=== PATIENT | female | born 1935 | race Two or more races ===

== ENCOUNTER 2020-05-30 16:25 | Emergency (ER) | payer OTHER ==
[~2020-05-30] VITALS: Ht 154.9 cm; Wt 72.6 kg
[2020-05-30] MEDS ORDERED: NORVASC5 MG (17:40)
[2020-05-30] MEDS ORDERED: TOPROL XL25 M1 (17:41)
[2020-05-30] MEDS ORDERED: SYNTHROID (17:41)
[2020-05-30] MEDS ORDERED: GLIMEPIRIDE2 MG (17:42)
[2020-05-30] MEDS ORDERED: SEROQUEL50 MG (17:42)
[2020-05-30] MEDS ORDERED: KLONOPIN 0.5 MG (17:43)
[2020-05-30] MEDS ORDERED: FIORINAL 50-321 EACH PO (23:21)
== END 2020-05-30 23:09 | disposition home or self-care (01) ==
LOC: ER 16:25
DX: S00.03XA Contusion of scalp, initial encounter (principal); S30.0XXA Contusion of lower back and pelvis, initial encounter; R53.81 Other malaise; Z03.818 Encounter for observation for suspected exposure to other biological agents ruled out; W18.09XA Striking against other object with subsequent fall, initial encounter; Y93.89 Activity, other specified; Y92.018 Other place in single-family (private) house as the place of occurrence of the external cause; Y99.8 Other external cause status

== ENCOUNTER 2021-04-13 08:48 | Emergency (ER) | payer OTHER ==
[~2021-04-13] VITALS: Ht 154.9 cm; Wt 71.7 kg
[~2021-04-13 08:48] MED LIST: FIORINAL 50-321 EACH PO; GLIMEPIRIDE2 MG; KLONOPIN 0.5 MG; NORVASC5 MG; SEROQUEL50 MG; SYNTHROID; TOPROL XL25 M1
[2021-04-13] MEDS ORDERED: CLONAZEPAM0.5 MG PO (09:09)
[2021-04-13] MEDS ORDERED: SYNTHROID100 MCG PO (09:09)
[2021-04-13] MEDS ORDERED: ZOLOFT25 MG PO (09:10)
== END 2021-04-13 15:38 | disposition home or self-care (01) ==
LOC: ER 08:48
DX: R10.32 Left lower quadrant pain (principal)

== ENCOUNTER 2023-09-06 15:26 | Emergency (ER) | payer OTHER ==
[~2023-09-06] VITALS: Ht 154.9 cm; Wt 68.9 kg
[~2023-09-06 15:26] MED LIST changes: +CLONAZEPAM0.5 MG PO; +SYNTHROID100 MCG PO; +ZOLOFT25 MG PO
[2023-09-06] MEDS ORDERED: GLIMEPIRIDE2 MG (15:54)
[2023-09-06] MEDS ORDERED: LOVAZA1 GM PO (15:54)
[2023-09-06] MEDS ORDERED: DIALYVITE 800-1 EACH PO (15:54)
[2023-09-06] MEDS ORDERED: CRESTOR5 MG PO (15:54)
[2023-09-06] MEDS ORDERED: GABAPENTIN100 M2 PO (15:55)
[2023-09-06 16:55] LABS: HEMATOCRIT 41.2 % (36.0-45.00); HEMOGLOBIN 14.7 g/dL (12.0-15.00); MEAN CELL VOLUME 95.6 fL (80.00-100.00); MEAN CORPUSCULAR HGB CONC 35.6 g/dl (32.0-36.0); PLATELET COUNT 155 K/uL (150-450); RED BLOOD COUNT 4.31 M/uL (4.00-6.00); RED CELL DISTRIBUTION WIDTH 12.6 % (11.5-14.5)
[2023-09-06 17:15] LABS: PH,URINE 6.5 (5.0-8.0); URINE APPEARANCE Clear; URINE BILIRRUBIN Negative (NEGATIVE); URINE BLOOD Negative; URINE COLOR Yellow; URINE GLUCOSE Negative (NEGATIVE); URINE LEUKOCYTE Trace; URINE NITRATE Negative; URINE PROTEIN Negative (NEGATIVE)
[2023-09-06 17:16] LABS: URINE BACTERIA 31.4 uL (0.0-1933); URINE EPITHELIAL CELLS 4.4 uL (0.0-38.8); URINE WBC 6.9 uL (0.0-23.2)
[2023-09-06 17:17] LABS: ALBUMIN 3.6 gm/dL (3.4-5.0); BILIRUBIN TOTAL 1.41 mg/dL (0.3-1.2); BILIRUBIN,CONJUGATED 0.29 mg/dL (0.0-0.2); BILIRUBIN,UNCONJUGATED 1.12 mg/dL (0.0-0.6); CALCIUM 8.9 mg/dL (8.5-10.1); CREATININE SERUM 1.13 mg/dL (0.55-1.02); GFR 45.65; GLOBULINA 3.5 G/DL (2.4-3.5); TOTAL PROTEIN 7.1 gm/dL (6.4-8.2)
[2023-09-06 17:31] LABS: POTASSIUM 2.98 mEq/L (3.5-5.1)
[2023-09-06] MEDS ORDERED: LEVSIN/SL0.125 MG SL (22:04)
== END 2023-09-06 22:35 | disposition home or self-care (01) ==
LOC: ER 15:26
PROVIDERS: General Practice
DX: R10.9 Unspecified abdominal pain (principal); E11.9 Type 2 diabetes mellitus without complications; Z79.84 Long term (current) use of oral hypoglycemic drugs; Z88.0 Allergy status to penicillin; Z91.041 Radiographic dye allergy status; I10 Essential (primary) hypertension; E03.9 Hypothyroidism, unspecified; Z20.822 Contact with and (suspected) exposure to COVID-19
CPT/HCPCS: 36415; 74177; 96365; 96366; 99284; J1885; J2405; J7030; Q9965

== ENCOUNTER 2023-09-13 10:00 | Inpatient (IN) | payer OTHER ==
[~2023-09-13] VITALS: Ht 152.4 cm; Wt 81.6 kg
[~2023-09-13 10:00] MED LIST changes: +CRESTOR5 MG PO; +DIALYVITE 800-1 EACH PO; +GABAPENTIN100 M2 PO; +LEVSIN/SL0.125 MG SL; +LOVAZA1 GM PO
[2023-09-13] MEDS ORDERED: DEXAMETHASONE SODIUM PHOSPHATE 4 MG/ML VIAL IV STA (10:29)
[2023-09-13] MEDS ORDERED: KETOROLAC TROMETHAMINE 30 MG VIAL IM STA (10:30)
[2023-09-13] MEDS ORDERED: KETOROLAC TROMETHAMINE 30 MG VIAL IV STA (10:30)
[2023-09-13 11:16] LABS: HEMATOCRIT 40.3 % (36.0-45.00); HEMOGLOBIN 14.3 g/dL (12.0-15.00); MEAN CELL VOLUME 94.9 fL (80.00-100.00); MEAN CORPUSCULAR HEMOGLOBIN 33.8 pg (27.00-32.0); MEAN CORPUSCULAR HGB CONC 35.6 g/dl (32.0-36.0); PLATELET COUNT 208 K/uL (150-450); RED BLOOD COUNT 4.25 M/uL (4.00-6.00); RED CELL DISTRIBUTION WIDTH 12.5 % (11.5-14.5)
[2023-09-13 11:59] LABS: ALBUMIN 3.5 gm/dL (3.4-5.0); BILIRUBIN TOTAL 1.73 mg/dL (0.3-1.2); BILIRUBIN,CONJUGATED 0.44 mg/dL (0.0-0.2); BILIRUBIN,UNCONJUGATED 1.29 mg/dL (0.0-0.6); CALCIUM 9.2 mg/dL (8.5-10.1); CREATININE SERUM 0.95 mg/dL (0.55-1.02); GFR 55.77; TOTAL PROTEIN 7.2 gm/dL (6.4-8.2)
[2023-09-13 12:03] LABS: POTASSIUM 2.91 mEq/L (3.5-5.1)
[2023-09-13] MEDS ORDERED: POTASSIUM CHLORIDE IN 0.9%NACL 40 MEQ/1,000 ML PIGGYBAG IV STA (12:06)
[2023-09-13 12:36] LABS: PH,URINE 6.5 (5.0-8.0); URINE APPEARANCE Clear; URINE BILIRRUBIN Negative (NEGATIVE); URINE BLOOD Negative; URINE COLOR Yellow; URINE GLUCOSE Negative (NEGATIVE); URINE LEUKOCYTE Negative; URINE NITRATE Negative; URINE PROTEIN Negative (NEGATIVE)
[2023-09-13 12:41] LABS: URINE BACTERIA 20.1 uL (0.0-1933); URINE RBC 4.1 uL (0.0-20.8); URINE WBC 3.3 uL (0.0-23.2)
[2023-09-13] MEDS ORDERED: FOLIC ACID 1 MG TABLET PO SCH (15:56)
[2023-09-13] MEDS ORDERED: MULTIVIT INFUSN,ADULT 4,VIT K 10 ML VIAL IV SCH (15:56)
[2023-09-13] MEDS ORDERED: Cyanocobalamin/Mecobalamin 1 TAB.SL SL SCH (15:56)
[2023-09-13] MEDS ORDERED: CHOLECALCIFEROL (VITAMIN D3) 5,000 UNITS TABLET PO SCH (15:57)
[2023-09-13] MEDS ORDERED: BISACODYL 5 MG TABLET.EC PO SCH (15:57)
[2023-09-13] MEDS ORDERED: ACETAMINOPHEN 500 MG GEL..CAP PO PRN (16:00)
[2023-09-13] MEDS ORDERED: SODIUM CHLORIDE 0.45 % 1,000 ML IV SCH (16:00)
[2023-09-13] MEDS ORDERED: OxyCODONE HCL/APAP UD (PERCOCET) PO PRN (16:00)
[2023-09-13] MEDS ORDERED: CLONAZEPAM 0.5 MG TABLET PO SCH (17:00)
[2023-09-13] MEDS ORDERED: SERTRALINE HCL 50 MG TABLET PO SCH (17:00)
[2023-09-13] MEDS ORDERED: INSULIN LISPRO 1,000 UNIT/10 ML UNITS SUBCUTANEO PRN (21:15)
[2023-09-13] MEDS ORDERED: DEXTROSE 50 % IN WATER 0.5 G/ML DISP.SYRIN IV PRN (21:15)
[2023-09-14] MEDS ORDERED: LEVOTHYROXINE SODIUM 100 MCG TABLET PO SCH (06:00)
[2023-09-14 08:57] LABS: ALBUMIN 3.5 gm/dL (3.4-5.0); BILIRUBIN TOTAL 1.63 mg/dL (0.3-1.2); CALCIUM 9.6 mg/dL (8.5-10.1); CREATININE SERUM 0.72 mg/dL (0.55-1.02); GFR 76.8; GLOBULINA 3.2 G/DL (2.4-3.5); POTASSIUM 3.79 mEq/L (3.5-5.1); TOTAL PROTEIN 6.7 gm/dL (6.4-8.2)
[2023-09-14 09:01] LABS: C-REACTIVE PROTEIN 0.75 MG/DL (0.00-0.29)
[2023-09-14 09:06] LABS: HEMATOCRIT 40.9 % (36.0-45.00); HEMOGLOBIN 14.5 g/dL (12.0-15.00); MEAN CELL VOLUME 96.4 fL (80.00-100.00); MEAN CORPUSCULAR HEMOGLOBIN 34.1 pg (27.00-32.0); MEAN CORPUSCULAR HGB CONC 35.4 g/dl (32.0-36.0); PLATELET COUNT 209 K/uL (150-450); RED BLOOD COUNT 4.24 M/uL (4.00-6.00); RED CELL DISTRIBUTION WIDTH 12.4 % (11.5-14.5)
[2023-09-14 09:07] LABS: ERYTHROCYTE SEDIMENTATION RATE 13 mm/hr
[2023-09-14] MEDS ORDERED: CHOLECALCIFEROL (VITAMIN D3) 5,000 UNITS TABLET PO SCH (10:23)
[2023-09-14] MEDS ORDERED: LIDOCAINE 5% 1 PATCH ADH. TOP SCH (12:00)
[2023-09-14 12:31] LABS: INR 1.08; PARTIAL THROMBOPLASTIN TIME 28.5 SECONDS (22.0-34.0); PROTHROMBIN TIME 11.3 SECONDS (9.0-11.5)
[2023-09-14] MEDS ORDERED: ORPHENADRINE CITRATE 30 MG/ML AMPUL IV SCH (21:00)
[2023-09-16 06:57] LABS: HEMATOCRIT 42.8 % (36.0-45.00); HEMOGLOBIN 15.2 g/dL (12.0-15.00); MEAN CELL VOLUME 95.5 fL (80.00-100.00); MEAN CORPUSCULAR HEMOGLOBIN 33.9 pg (27.00-32.0); MEAN CORPUSCULAR HGB CONC 35.5 g/dl (32.0-36.0); PLATELET COUNT 249 K/uL (150-450); RED BLOOD COUNT 4.48 M/uL (4.00-6.00); RED CELL DISTRIBUTION WIDTH 12.8 % (11.5-14.5)
[2023-09-16 07:08] LABS: ALBUMIN 3.7 gm/dL (3.4-5.0); BILIRUBIN TOTAL 1.38 mg/dL (0.3-1.2); CALCIUM 9.3 mg/dL (8.5-10.1); CREATININE SERUM 0.98 mg/dL (0.55-1.02); GFR 53.81; GLOBULINA 3.4 G/DL (2.4-3.5); POTASSIUM 3.49 mEq/L (3.5-5.1); TOTAL PROTEIN 7.1 gm/dL (6.4-8.2)
[2023-09-16] MEDS ORDERED: KETOROLAC TROMETHAMINE 30 MG VIAL IV PRN (15:00)
[2023-09-17] MEDS ORDERED: Pregabalin 50 MG CAPSULE PO SCH ×2 (01:30→21:00)
[2023-09-17] MEDS ORDERED: DIPHENHYDRAMINE HCL 50 MG/ML VIAL 1ML IV ONE (12:30)
[2023-09-17] MEDS ORDERED: METHYLPREDNISOLONE SOD SUCC 125 MG VIAL IV ONE (12:30)
[2023-09-18] MEDS ORDERED: FAMOTIDINE/PF 20 MG/2 ML VIAL IV SCH (21:05)
[2023-09-18] MEDS ORDERED: ONDANSETRON HCL 2 MG/ML VIAL IV PRN (21:15)
[2023-09-19] MEDS ORDERED: Pregabalin 50 MG CAPSULE PO SCH (05:00)
[2023-09-19] MEDS ORDERED: CLONAZEPAM 0.5 MG TABLET PO PRN (09:00)
[2023-09-20] MEDS ORDERED: CLONAZEPAM0.5 MG PO (15:29)
[2023-09-20] MEDS ORDERED: FOLIC ACID1 MG PO (15:30)
[2023-09-20] MEDS ORDERED: LIDODERM1 EACH TOP (15:30)
[2023-09-20] MEDS ORDERED: VITAMIN D3125 MC2 PO (15:30)
[2023-09-20] MEDS ORDERED: Neurin-Sl Tablet Sl SL (15:30)
[2023-09-20] MEDS ORDERED: SERTRALINE HCL50 MG PO (15:30)
[2023-09-20] MEDS ORDERED: LYRICA50 MG PO (15:30)
[2023-09-20] MEDS ORDERED: INTEGRA PLUS C1 EACH PO (15:31)
[2023-09-21] MEDS ORDERED: FAMOTIDINE/PF 20 MG/2 ML VIAL IV SCH (09:00)
== END 2023-09-20 20:33 | disposition home or self-care (01) | DRG 641 ==
LOC: ER 10:00 → MEDI 16:32
PROVIDERS: General Practice; Internal Medicine Endocrinology, Diabetes & Metabolism; ADMIT Internal Medicine; ATTEND Internal Medicine
PROC: BR29ZZZ Computerized Tomography (CT Scan) of Lumbar Spine (ICD-10-PCS; principal; 2023-09-13)
PROC: BR39ZZZ Magnetic Resonance Imaging (MRI) of Lumbar Spine (ICD-10-PCS; 2023-09-16)
PROC: BR39YZZ Magnetic Resonance Imaging (MRI) of Lumbar Spine using Other Contrast (ICD-10-PCS; 2023-09-16)
DX: E87.6 Hypokalemia (principal); E86.0 Dehydration; M48.061 Spinal stenosis, lumbar region without neurogenic claudication; G89.29 Other chronic pain; M54.59 Other low back pain; M89.8X8 Other specified disorders of bone, other site; M43.16 Spondylolisthesis, lumbar region; M51.16 Intervertebral disc disorders with radiculopathy, lumbar region; M79.7 Fibromyalgia; K59.00 Constipation, unspecified; I12.9 Hypertensive chronic kidney disease with stage 1 through stage 4 chronic kidney disease, or unspecified chronic kidney disease; E11.22 Type 2 diabetes mellitus with diabetic chronic kidney disease; N18.2 Chronic kidney disease, stage 2 (mild); I25.10 Atherosclerotic heart disease of native coronary artery without angina pectoris; E11.649 Type 2 diabetes mellitus with hypoglycemia without coma; F43.23 Adjustment disorder with mixed anxiety and depressed mood; E03.9 Hypothyroidism, unspecified; Z79.84 Long term (current) use of oral hypoglycemic drugs
CPT/HCPCS: 72149

== ENCOUNTER 2024-02-22 13:41 | Inpatient (IN) | payer OTHER ==
[~2024-02-22] VITALS: Ht 152.4 cm; Wt 59.9 kg
[~2024-02-22 13:41] MED LIST changes: +FOLIC ACID1 MG PO; +INTEGRA PLUS C1 EACH PO; +LIDODERM1 EACH TOP; +LYRICA50 MG PO; +Neurin-Sl Tablet Sl SL; +SERTRALINE HCL50 MG PO; +VITAMIN D3125 MC2 PO
[2024-02-22] MEDS ORDERED: FAMOtidine 200mg/20ml VIAL ONE ×2 (14:24→21:09)
[2024-02-22] MEDS ORDERED: FAMOtidine 10 MG/ML (4ML VIAL) IV ONE (14:30)
[2024-02-22] MEDS ORDERED: 0.9 % SODIUM CHLORIDE 1,000 ML IV ONE (14:30)
[2024-02-22] MEDS ORDERED: VITAMIN B COMPLEX/LYSINE 1 ML ML PO ONE (14:30)
[2024-02-22 15:31] LABS: HEMATOCRIT 39.6 % (36.0-45.00); MEAN CELL VOLUME 99.7 fL (80.00-100.00); MEAN CORPUSCULAR HEMOGLOBIN 35.2 pg (27.00-32.0); MEAN CORPUSCULAR HGB CONC 35.3 g/dl (32.0-36.0); PLATELET COUNT 200 K/uL (150-450); RED BLOOD COUNT 3.97 M/uL (4.00-6.00); RED CELL DISTRIBUTION WIDTH 12.9 % (11.5-14.5)
[2024-02-22 15:54] LABS: ABG pCO2 31.1 mmHg (35-45); BASE EXCESS -0.5 mmol/l; BICARBONATE 22.2 mmol/l (23-25); SaO2 96.7 %; Tco2 23.1 mmol/l
[2024-02-22 15:59] LABS: ALBUMIN 3.6 gm/dL (3.4-5.0); BILIRUBIN TOTAL 2.35 mg/dL (0.3-1.2); CALCIUM 9.4 mg/dL (8.5-10.1); CREATININE SERUM 0.97 mg/dL (0.55-1.02); GFR 54.32; GLOBULINA 3.6 G/DL (2.4-3.5); TOTAL PROTEIN 7.2 gm/dL (6.4-8.2)
[2024-02-22 16:07] LABS: allen test SATISFACTORY; o2 21 %; puncture site RADIAL RIGHT
[2024-02-22 18:14] LABS: PH,URINE 6.5 (5.0-8.0); URINE APPEARANCE Cloudy; URINE BILIRRUBIN Small (NEGATIVE); URINE BLOOD Negative; URINE COLOR Dark Yellow; URINE GLUCOSE Negative (NEGATIVE); URINE KETONE Trace (NEGATIVE); URINE LEUKOCYTE Small; URINE NITRATE Negative; URINE PROTEIN 30 (NEGATIVE)
[2024-02-22 18:17] LABS: URINE BACTERIA 110.8 uL (0.0-1933); URINE EPITHELIAL CELLS 10.1 uL (0.0-38.8); URINE RBC 3.8 uL (0.0-20.8); URINE WBC 122.9 uL (0.0-23.2)
[2024-02-22 18:39] LABS: URINE CAST 0.45 uL (0.0-1.40)
[2024-02-22] MEDS ORDERED: BUSPIRONE HCL 15 MG TABLET PO SCH (20:28)
[2024-02-22] MEDS ORDERED: ACETAMINOPHEN 500 MG GEL..CAP PO PRN (20:30)
[2024-02-22] MEDS ORDERED: ONDANSETRON HCL 4 MG in 0.9 % SODIUM CHLORIDE 50 ML IV PRN (20:30)
[2024-02-22] MEDS ORDERED: INSULIN LISPRO 1,000 UNIT/10 ML UNITS SUBCUTANEO PRN (20:30)
[2024-02-22] MEDS ORDERED: DEXTROSE 50 % IN WATER 0.5 G/ML DISP.SYRIN IV PRN (20:30)
[2024-02-22] MEDS ORDERED: MORPHINE SULFATE 2 MG/ML CARTRIDGE IV PRN (20:30)
[2024-02-22] MEDS ORDERED: hydrALAZINE HCL 20 MG VIAL IV PRN (20:30)
[2024-02-22] MEDS ORDERED: FUROsemide 20 MG/2 ML VIAL IV SCH (21:00)
[2024-02-22] MEDS ORDERED: FAMOTIDINE/PF 20 MG in 0.9 % SODIUM CHLORIDE 8 ML IV PUSH SCH (21:00)
[2024-02-22] MEDS ORDERED: FUROsemide 20 MG/2 ML VIAL ONE (21:08)
[2024-02-22 21:48] VITALS: BP 136/85; O2SAT 96
[2024-02-22 22:26] VITALS: O2SAT 97
[2024-02-22 22:27] LABS: POTASSIUM 2.89 mEq/L (3.5-5.1)
[2024-02-22 22:30] VITALS: BP 113/78; O2SAT 98
[2024-02-23] VITALS (9 sets, daily range): BP systolic 97–123; BP diastolic 68–82; O2SAT 97–98
[2024-02-23] MEDS ORDERED: LEVALBUTEROL HCL 1.25 MG/3 ML SOLUTION IH SCH
[2024-02-23] MEDS ORDERED: IPRATROPIUM BROMIDE 0.5 MG/2.5 ML AMPUL.NEB IH SCH (01:00)
[2024-02-23] MEDS ORDERED: POTASSIUM CHLORIDE IN WATER 100 ML IV SCH ×2 (05:00→17:00)
[2024-02-23] MEDS ORDERED: LEVOTHYROXINE SODIUM 100 MCG TABLET PO SCH (06:00)
[2024-02-23 07:26] LABS: HEMATOCRIT 36.7 % (36.0-45.00); HEMOGLOBIN 13.1 g/dL (12.0-15.00); MEAN CELL VOLUME 98.3 fL (80.00-100.00); MEAN CORPUSCULAR HEMOGLOBIN 35.2 pg (27.00-32.0); MEAN CORPUSCULAR HGB CONC 35.8 g/dl (32.0-36.0); PLATELET COUNT 203 K/uL (150-450); RED BLOOD COUNT 3.73 M/uL (4.00-6.00); RED CELL DISTRIBUTION WIDTH 13.1 % (11.5-14.5)
[2024-02-23 07:37] LABS: INR 1.1; PARTIAL THROMBOPLASTIN TIME 25.1 SECONDS (22.0-34.0); PROTHROMBIN TIME 11.5 SECONDS (9.0-11.5)
[2024-02-23 07:48] LABS: ERYTHROCYTE SEDIMENTATION RATE 29 mm/hr
[2024-02-23 08:07] LABS: ALBUMIN 3.2 gm/dL (3.4-5.0); BILIRUBIN TOTAL 2.13 mg/dL (0.3-1.2); BILIRUBIN,CONJUGATED 0.47 mg/dL (0.0-0.2); BILIRUBIN,UNCONJUGATED 1.66 mg/dL (0.0-0.6); CALCIUM 8.7 mg/dL (8.5-10.1); CHOL HDL RATIO 2.4 (0-5.0); CREATININE SERUM 0.79 mg/dL (0.55-1.02); GFR 68.84; GLOBULINA 2.9 G/DL (2.4-3.5); POTASSIUM 3.28 mEq/L (3.5-5.1); TOTAL PROTEIN 6.1 gm/dL (6.4-8.2)
[2024-02-23 08:08] LABS: C-REACTIVE PROTEIN 4.15 MG/DL (0.00-0.29)
[2024-02-23] MEDS ORDERED: METOPROLOL TARTRATE 25 MG TABLET PO SCH (09:00)
[2024-02-23] MEDS ORDERED: SERTRALINE HCL 100 MG TABLET PO SCH ×2 (09:00→21:00)
[2024-02-23] MEDS ORDERED: AMLODIPINE BESYLATE 10 MG TABLET PO SCH (09:00)
[2024-02-23] MEDS ORDERED: ENOXAPARIN SODIUM 40 MG/0.4 ML SYRINGE SUBCUTANEO SCH (09:00)
[2024-02-23] MEDS ORDERED: FAMOTIDINE/PF 20 MG/2 ML VIAL ONE (10:25)
[2024-02-23 12:05] LABS: PH,URINE 6.5 (5.0-8.0); URINE APPEARANCE Clear; URINE BILIRRUBIN Negative (NEGATIVE); URINE BLOOD NHT; URINE COLOR Yellow; URINE GLUCOSE Negative (NEGATIVE); URINE KETONE Negative (NEGATIVE); URINE LEUKOCYTE Small; URINE NITRATE Negative; URINE PROTEIN Negative (NEGATIVE)
[2024-02-23 12:09] LABS: URINE BACTERIA 118.4 uL (0.0-1933); URINE EPITHELIAL CELLS 2.4 uL (0.0-38.8); URINE RBC 56.4 uL (0.0-20.8); URINE WBC 57.6 uL (0.0-23.2)
[2024-02-23 12:25] LABS: URINE CAST 0.15 uL (0.0-1.40)
[2024-02-23] MEDS ORDERED: DILTIAZEM HCL 125 MG in 0.9 % SODIUM CHLORIDE 100 ML IV SCH (16:15)
[2024-02-23] MEDS ORDERED: FUROsemide 20 MG/2 ML VIAL IV STA (16:18)
[2024-02-23] MEDS ORDERED: ENOXAPARIN SODIUM 60 MG/0.6 ML SYRINGE SUBCUTANEO SCH (17:00)
[2024-02-23] MEDS ORDERED: PATIENTS OWN MEDICATION (MEDICAMENTO EN PISO) PO SCH (17:00)
[2024-02-23] MEDS ORDERED: BUSPIRONE HCL 15 MG TABLET PO SCH (17:00)
[2024-02-23] MEDS ORDERED: CARVEDILOL 3.125 MG TABLET PO SCH (21:00)
[2024-02-24] VITALS (9 sets, daily range): BP systolic 97–127; BP diastolic 60–77; O2SAT 90–99
[2024-02-24] MEDS ORDERED: FAMOTIDINE/PF 20 MG/2 ML VIAL ONE (08:26)
[2024-02-24] MEDS ORDERED: METOPROLOL TARTRATE 25 MG TABLET PO SCH (09:00)
[2024-02-24] MEDS ORDERED: POTASSIUM CHLORIDE/NACL 0.9% 1,000 ML IV ONE (13:15)
[2024-02-24] MEDS ORDERED: WATER IV SCH (14:56)
[2024-02-24] MEDS ORDERED: DEXTROSE 5% IV SCH (14:56)
[2024-02-24] MEDS ORDERED: DOXYCYCLINE HYCLATE IV SCH (14:56)
[2024-02-24] MEDS ORDERED: NYSTATIN 30 GM,SILVER SULFADIAZINE 50 GM,ZINC OXIDE 30 GM TOP SCH (17:00)
[2024-02-24] MEDS ORDERED: NITROGLYCERIN IN 5 % DEXTROSE 250 ML IV SCH (21:45)
[2024-02-24] MEDS ORDERED: NITROGLYCERIN IN 5 % DEXTROSE 50 MG/250 ML BOTTLE IV ONE (22:16)
[2024-02-24] MEDS ORDERED: AMIODARONE IN DEXTROSE,ISO-OSM 360 MG/200 ML IV.SOLN IV ONE (22:16)
[2024-02-25] VITALS (8 sets, daily range): BP systolic 91–120; BP diastolic 60–76; O2SAT 93–98
[2024-02-25] MEDS ORDERED: FUROsemide 20 MG/2 ML VIAL IV SCH (01:00)
[2024-02-25] MEDS ORDERED: FAMOTIDINE/PF 20 MG/2 ML VIAL ONE (08:15)
[2024-02-25] MEDS ORDERED: FUROsemide 40 MG/4 ML VIAL IV SCH (10:48)
[2024-02-25] MEDS ORDERED: NITROGLYCERIN IN 5 % DEXTROSE 250 ML IV SCH (11:00)
[2024-02-25 13:26] LABS: ALBUMIN 2.9 gm/dL (3.4-5.0); BILIRUBIN TOTAL 1.53 mg/dL (0.3-1.2); CALCIUM 8.7 mg/dL (8.5-10.1); CREATININE SERUM 0.83 mg/dL (0.55-1.02); GFR 65.03; GLOBULINA 3.4 G/DL (2.4-3.5); POTASSIUM 3.3 mEq/L (3.5-5.1); TOTAL PROTEIN 6.3 gm/dL (6.4-8.2)
[2024-02-25] MEDS ORDERED: AZTREONAM 1,000 MG VIAL IV NR (14:00)
[2024-02-25] MEDS ORDERED: CLINDAMYCIN PHOSPHATE 600 MG in DEXTROSE 5 % IN WATER 50 ML IV SCH (17:00)
[2024-02-25] MEDS ORDERED: AZTREONAM 1,000 MG VIAL IV SCH (21:00)
[2024-02-26] VITALS (9 sets, daily range): BP systolic 97–114; BP diastolic 56–75; O2SAT 96–100
[2024-02-26] MEDS ORDERED: FUROsemide 40 MG/4 ML VIAL IV SCH (01:00)
[2024-02-26] MEDS ORDERED: AMIODARONE HCL 200 MG TABLET PO SCH (09:00)
[2024-02-26] MEDS ORDERED: FAMOTIDINE/PF 20 MG/2 ML VIAL ONE ×2 (09:03→16:10)
[2024-02-26 09:54] LABS: ALBUMIN 3.2 gm/dL (3.4-5.0); BILIRUBIN TOTAL 1.98 mg/dL (0.3-1.2); CALCIUM 8.8 mg/dL (8.5-10.1); CREATININE SERUM 0.76 mg/dL (0.55-1.02); GFR 71.99; GLOBULINA 3.1 G/DL (2.4-3.5); POTASSIUM 3.48 mEq/L (3.5-5.1); TOTAL PROTEIN 6.3 gm/dL (6.4-8.2)
[2024-02-26] MEDS ORDERED: FUROsemide 20 MG/2 ML VIAL IV SCH (10:38)
[2024-02-26] MEDS ORDERED: CEFEPIME HCL 1,000 MG VIAL IV SCH (17:00)
[2024-02-26] MEDS ORDERED: LACTOBACILLUS ACIDOPHILUS 1 CAP CAP PO SCH (17:00)
[2024-02-26] MEDS ORDERED: HYDROCODONE/CHLORPHEN P-STIREX 5 ML ML PO SCH (21:00)
[2024-02-27] VITALS (10 sets, daily range): BP systolic 84–106; BP diastolic 50–75; O2SAT 90–99
[2024-02-27 09:12] LABS: HEMATOCRIT 33.6 % (36.0-45.00); HEMOGLOBIN 11.9 g/dL (12.0-15.00); MEAN CELL VOLUME 97.9 fL (80.00-100.00); MEAN CORPUSCULAR HEMOGLOBIN 34.8 pg (27.00-32.0); MEAN CORPUSCULAR HGB CONC 35.5 g/dl (32.0-36.0); PLATELET COUNT 202 K/uL (150-450); RED BLOOD COUNT 3.44 M/uL (4.00-6.00); RED CELL DISTRIBUTION WIDTH 13.1 % (11.5-14.5)
[2024-02-27 09:40] LABS: BILIRUBIN TOTAL 1.8 mg/dL (0.3-1.2); CALCIUM 8.9 mg/dL (8.5-10.1); CREATININE SERUM 0.68 mg/dL (0.55-1.02); GFR 81.85
[2024-02-27 10:17] LABS: POTASSIUM 2.81 mEq/L (3.5-5.1)
[2024-02-27] MEDS ORDERED: POTASSIUM CHLORIDE IN WATER 100 ML IV NR (12:15)
[2024-02-27] MEDS ORDERED: DIATRIZOATE MEGLUMINE, SODIUM 30 ML BOTTLE PO NR (16:45)
[2024-02-27] MEDS ORDERED: DOCUSATE CALCIUM 240 MG CAPSULE PO SCH (17:00)
[2024-02-27] MEDS ORDERED: DIPHENHYDRAMINE HCL 50 MG/ML VIAL 1ML IV NR (17:15)
[2024-02-27] MEDS ORDERED: METHYLPREDNISOLONE SOD SUCC 40 MG VIAL IV NR (17:15)
[2024-02-27] MEDS ORDERED: POTASSIUM CHLORIDE 10 MEQ CAPSULE PO SCH (21:50)
[2024-02-27] MEDS ORDERED: POTASSIUM CHLORIDE 10 MEQ CAPSULE PO ONE (22:14)
[2024-02-28] VITALS (7 sets, daily range): BP systolic 111–112; BP diastolic 78–80; O2SAT 97–100
[2024-02-28] MEDS ORDERED: ISOSORBIDE MONONITRATE 30 MG TABLET PO SCH (09:00)
[2024-02-28] MEDS ORDERED: METHYLPREDNISOLONE SOD SUCC 40 MG VIAL IV SCH (13:00)
[2024-02-28] MEDS ORDERED: PANTOPRAZOLE SODIUM 40 MG in 0.9 % SODIUM CHLORIDE 8 ML IV PUSH SCH (21:11)
[2024-02-28] MEDS ORDERED: AMIODARONE IN DEXTROSE,ISO-OSM 360 MG/200 ML IV.SOLN IV ONE (23:51)
[2024-02-29] VITALS (9 sets, daily range): BP systolic 100–109; BP diastolic 60–82; O2SAT 96–100
[2024-02-29] MEDS ORDERED: HYDROCODONE/CHLORPHEN P-STIREX 5 ML ML PO SCH (05:00)
[2024-02-29 20:55] LABS: AMYLASE 96 U/L (25-115)
[2024-02-29 21:12] LABS: LIPASE 151 U/L (13-75)
[2024-02-29] MEDS ORDERED: MORPHINE SULFATE 2 MG/ML CARTRIDGE IV PRN (23:15)
[2024-03-01] VITALS (8 sets, daily range): BP systolic 112–124; BP diastolic 78–96; O2SAT 96–100
[2024-03-01 07:46] LABS: ALBUMIN 3.3 gm/dL (3.4-5.0); BILIRUBIN TOTAL 0.98 mg/dL (0.3-1.2); CALCIUM 9.3 mg/dL (8.5-10.1); CREATININE SERUM 1.27 mg/dL (0.55-1.02); GFR 39.8; POTASSIUM 3.5 mEq/L (3.5-5.1); TOTAL PROTEIN 6.3 gm/dL (6.4-8.2)
[2024-03-01] MEDS ORDERED: PANTOPRAZOLE SODIUM 40 MG/VIAL VIAL ONE (08:36)
[2024-03-01] MEDS ORDERED: FUROsemide 20 MG/2 ML VIAL IV SCH (21:00)
[2024-03-01] MEDS ORDERED: DIGOXIN 0.25 MG/ML AMPUL IV SCH (21:21)
[2024-03-01] MEDS ORDERED: MORPHINE SULFATE 2 MG/ML CARTRIDGE IV PRN (21:31)
[2024-03-02] VITALS (9 sets, daily range): BP systolic 104–114; BP diastolic 58–85; O2SAT 93–98
[2024-03-02] MEDS ORDERED: PANTOPRAZOLE SODIUM 40 MG/VIAL VIAL ONE (08:18)
[2024-03-02] MEDS ORDERED: FUROsemide 20 MG/2 ML VIAL IV SCH (09:00)
[2024-03-02 09:26] LABS: ALBUMIN 3.3 gm/dL (3.4-5.0); BILIRUBIN TOTAL 0.96 mg/dL (0.3-1.2); CALCIUM 9.5 mg/dL (8.5-10.1); CREATININE SERUM 1.51 mg/dL (0.55-1.02); GFR 32.6; GLOBULINA 3.2 G/DL (2.4-3.5); POTASSIUM 3.7 mEq/L (3.5-5.1); TOTAL PROTEIN 6.5 gm/dL (6.4-8.2)
[2024-03-02] MEDS ORDERED: SIMETHICONE 125 MG CAPSULE PO SCH (17:00)
[2024-03-03] VITALS (10 sets, daily range): BP systolic 95–120; BP diastolic 55–74; O2SAT 94–99
[2024-03-03 07:48] LABS: HEMATOCRIT 34.8 % (36.0-45.00); MEAN CELL VOLUME 99.7 fL (80.00-100.00); MEAN CORPUSCULAR HEMOGLOBIN 34.4 pg (27.00-32.0); MEAN CORPUSCULAR HGB CONC 34.5 g/dl (32.0-36.0); PLATELET COUNT 155 K/uL (150-450); RED BLOOD COUNT 3.49 M/uL (4.00-6.00); RED CELL DISTRIBUTION WIDTH 12.7 % (11.5-14.5)
[2024-03-03 08:25] LABS: ALBUMIN 2.8 gm/dL (3.4-5.0); BILIRUBIN TOTAL 0.85 mg/dL (0.3-1.2); CALCIUM 8.8 mg/dL (8.5-10.1); CREATININE SERUM 1.17 mg/dL (0.55-1.02); GFR 43.75; GLOBULINA 2.9 G/DL (2.4-3.5); POTASSIUM 3.26 mEq/L (3.5-5.1); TOTAL PROTEIN 5.7 gm/dL (6.4-8.2)
[2024-03-03] MEDS ORDERED: DIGOXIN 0.125 MG TABLET PO SCH (09:00)
[2024-03-03] MEDS ORDERED: PANTOPRAZOLE SODIUM 40 MG/VIAL VIAL ONE (09:18)
[2024-03-04] VITALS (7 sets, daily range): BP systolic 94–127; BP diastolic 61–83; O2SAT 90–98
[2024-03-05] VITALS (9 sets, daily range): BP systolic 102–156; BP diastolic 71–87; O2SAT 94–98
[2024-03-05] MEDS ORDERED: PANTOPRAZOLE SODIUM 40 MG/VIAL VIAL ONE (08:31)
[2024-03-05] MEDS ORDERED: AMIODARONE HCL 200 MG TABLET PO SCH (09:00)
[2024-03-06] VITALS (9 sets, daily range): BP systolic 101–121; BP diastolic 64–72; O2SAT 90–97
[2024-03-06 06:13] LABS: HEMOGLOBIN 10.6 g/dL (12.0-15.00); MEAN CELL VOLUME 99.8 fL (80.00-100.00); MEAN CORPUSCULAR HEMOGLOBIN 35.3 pg (27.00-32.0); MEAN CORPUSCULAR HGB CONC 35.4 g/dl (32.0-36.0); RED CELL DISTRIBUTION WIDTH 13.1 % (11.5-14.5)
[2024-03-06 06:46] LABS: ALBUMIN 2.1 gm/dL (3.4-5.0); BILIRUBIN TOTAL 1.26 mg/dL (0.3-1.2); CALCIUM 7.9 mg/dL (8.5-10.1); CREATININE SERUM 0.68 mg/dL (0.55-1.02); GFR 81.85; GLOBULINA 2.7 G/DL (2.4-3.5); TOTAL PROTEIN 4.8 gm/dL (6.4-8.2)
[2024-03-06 07:18] LABS: PLATELET COUNT 125 K/uL (150-450)
[2024-03-06 07:56] LABS: POTASSIUM 2.51 mEq/L (3.5-5.1)
[2024-03-06] MEDS ORDERED: POTASSIUM CHLORIDE IN WATER 40 MEQ/100 ML PIGGYBAG IV SCH (09:00)
[2024-03-06] MEDS ORDERED: AZTREONAM 1,000 MG VIAL IV SCH (21:00)
[2024-03-06 23:31] LABS: borde igm < 1.0 index (0.0-0.9); bordetella igg < 0.95 index (0.00-0.94)
[2024-03-07] VITALS (8 sets, daily range): BP systolic 111–124; BP diastolic 66–80; O2SAT 90–100
[2024-03-07] MEDS ORDERED: GABAPENTIN 100 MG CAPSULE PO ONE (20:00)
[2024-03-08] VITALS (11 sets, daily range): BP systolic 120–145; BP diastolic 67–82; O2SAT 90–100
[2024-03-08] MEDS ORDERED: GABAPENTIN 300 MG CAPSULE PO STA (00:32)
[2024-03-08 08:50] LABS: HEMATOCRIT 30.4 % (36.0-45.00); HEMOGLOBIN 10.4 g/dL (12.0-15.00); MEAN CELL VOLUME 98.8 fL (80.00-100.00); MEAN CORPUSCULAR HEMOGLOBIN 33.7 pg (27.00-32.0); MEAN CORPUSCULAR HGB CONC 34.1 g/dl (32.0-36.0); PLATELET COUNT 189 K/uL (150-450); RED BLOOD COUNT 3.07 M/uL (4.00-6.00); RED CELL DISTRIBUTION WIDTH 13.2 % (11.5-14.5)
[2024-03-08 09:14] LABS: CALCIUM 8.5 mg/dL (8.5-10.1); CREATININE SERUM 0.71 mg/dL (0.55-1.02); GFR 77.87; MAGNESIUM 2.2 mg/dL (1.8-2.4); PHOSPHOROUS 2.6 mg/dL (2.5-4.9); POTASSIUM 3.7 mEq/L (3.5-5.1)
[2024-03-08] MEDS ORDERED: LINEZOLID IN DEXTROSE 5% 300 ML IV SCH (21:00)
[2024-03-08] MEDS ORDERED: MEROPENEM 500 MG/VIAL VIAL IV SCH (21:00)
[2024-03-09] VITALS (10 sets, daily range): BP systolic 115–137; BP diastolic 67–80; O2SAT 90–100
[2024-03-09 08:35] LABS: HEMATOCRIT 29.5 % (36.0-45.00); HEMOGLOBIN 10.2 g/dL (12.0-15.00); MEAN CORPUSCULAR HEMOGLOBIN 34.2 pg (27.00-32.0); MEAN CORPUSCULAR HGB CONC 34.4 g/dl (32.0-36.0); PLATELET COUNT 194 K/uL (150-450); RED BLOOD COUNT 2.98 M/uL (4.00-6.00); RED CELL DISTRIBUTION WIDTH 12.9 % (11.5-14.5)
[2024-03-09] MEDS ORDERED: FLUCONAZOLE IN NACL,ISO-OSM 100 ML IV SCH (09:00)
[2024-03-09 09:30] LABS: ALBUMIN 2.3 gm/dL (3.4-5.0); BILIRUBIN TOTAL 1.04 mg/dL (0.3-1.2); CALCIUM 8.6 mg/dL (8.5-10.1); CREATININE SERUM 0.71 mg/dL (0.55-1.02); GFR 77.87; MAGNESIUM 2.1 mg/dL (1.8-2.4); PHOSPHOROUS 3.3 mg/dL (2.5-4.9); TOTAL PROTEIN 5.3 gm/dL (6.4-8.2)
[2024-03-09 09:33] LABS: POTASSIUM 3.54 mEq/L (3.5-5.1)
[2024-03-09 13:55] LABS: URINE APPEARANCE Clear; URINE BILIRRUBIN Negative (NEGATIVE); URINE BLOOD Moderate; URINE COLOR Yellow; URINE GLUCOSE Negative (NEGATIVE); URINE KETONE Negative (NEGATIVE); URINE LEUKOCYTE Trace; URINE NITRATE Negative; URINE PROTEIN Trace (NEGATIVE); URINE UROBILINOGEN 0.2 E.U./dl
[2024-03-09 13:59] LABS: URINE BACTERIA 23.9 uL (0.0-1933); URINE CAST 3.35 uL (0.0-1.40); URINE EPITHELIAL CELLS 6.9 uL (0.0-38.8); URINE RBC 47.7 uL (0.0-20.8); URINE WBC 24.1 uL (0.0-23.2)
[2024-03-09] MEDS ORDERED: ACETAMINOPHEN 500 MG GEL..CAP PO SCH (17:00)
[2024-03-09] MEDS ORDERED: MORPHINE SULFATE 4 MG/ML CARTRIDGE IV PRN (17:00)
[2024-03-09] MEDS ORDERED: FAMOtidine 20 MG TABLET PO SCH (21:00)
[2024-03-10] VITALS (9 sets, daily range): BP systolic 100–117; BP diastolic 58–74; O2SAT 98–100
[2024-03-10] MEDS ORDERED: (FF) Daptomycin 50 MG/ML IV SCH ×2 (14:00→17:00)
[2024-03-10] MEDS ORDERED: ONDANSETRON HCL 4 MG in 0.9 % SODIUM CHLORIDE 50 ML IV PRN (15:30)
[2024-03-10] MEDS ORDERED: MAG HYDROX/ALUMINUM HYD/SIMETH 30 ML BLIST.PACK PO SCH (21:00)
[2024-03-11] VITALS (10 sets, daily range): BP systolic 115–128; BP diastolic 63–78; O2SAT 95–100
[2024-03-11 08:58] LABS: HEMATOCRIT 25.4 % (36.0-45.00); MEAN CORPUSCULAR HEMOGLOBIN 34.6 pg (27.00-32.0); MEAN CORPUSCULAR HGB CONC 34.9 g/dl (32.0-36.0); PLATELET COUNT 180 K/uL (150-450); RED BLOOD COUNT 2.57 M/uL (4.00-6.00); RED CELL DISTRIBUTION WIDTH 13.3 % (11.5-14.5)
[2024-03-11] MEDS ORDERED: VITAMIN B COMPLEX/LYSINE 1 ML ML PO SCH (09:00)
[2024-03-11 09:02] LABS: HEMOGLOBIN 8.9 g/dL (12.0-15.00)
[2024-03-11 10:15] LABS: ALBUMIN 2.1 gm/dL (3.4-5.0); BILIRUBIN TOTAL 0.89 mg/dL (0.3-1.2); CALCIUM 8.4 mg/dL (8.5-10.1); CREATININE SERUM 0.58 mg/dL (0.55-1.02); GFR 98.34; POTASSIUM 3.54 mEq/L (3.5-5.1); TOTAL PROTEIN 5.1 gm/dL (6.4-8.2)
[2024-03-11] MEDS ORDERED: Daptomycin 350 MG/VIAL VIAL IV SCH (14:00)
[2024-03-11] MEDS ORDERED: SOD FERRIC GLUC COMPLX/SUCROSE 62.5 MG in 0.9 % SODIUM CHLORIDE 50 ML IV SCH (17:00)
[2024-03-12] VITALS (8 sets, daily range): BP systolic 120–145; BP diastolic 60–76; O2SAT 90–100
[2024-03-12] MEDS ORDERED: Cyanocobalamin/Mecobalamin 1 TAB.SL SL SCH (09:00)
[2024-03-12] MEDS ORDERED: METHYLPREDNISOLONE SOD SUCC 125 MG VIAL IV NR (14:30)
[2024-03-12] MEDS ORDERED: DIPHENHYDRAMINE HCL 50 MG/ML VIAL 1ML IV NR (14:30)
[2024-03-13] VITALS (10 sets, daily range): BP systolic 126–165; BP diastolic 66–90; O2SAT 90–99
[2024-03-13 08:36] LABS: HEMATOCRIT 24.8 % (36.0-45.00); MEAN CELL VOLUME 99.7 fL (80.00-100.00); MEAN CORPUSCULAR HEMOGLOBIN 34.2 pg (27.00-32.0); MEAN CORPUSCULAR HGB CONC 34.3 g/dl (32.0-36.0); PLATELET COUNT 218 K/uL (150-450); RED BLOOD COUNT 2.48 M/uL (4.00-6.00); RED CELL DISTRIBUTION WIDTH 13.4 % (11.5-14.5)
[2024-03-13 08:37] LABS: HEMOGLOBIN 8.5 g/dL (12.0-15.00)
[2024-03-13 08:44] LABS: ERYTHROCYTE SEDIMENTATION RATE 50 mm/hr
[2024-03-13 09:16] LABS: ALBUMIN 2.1 gm/dL (3.4-5.0); BILIRUBIN TOTAL 1.03 mg/dL (0.3-1.2); CALCIUM 8.5 mg/dL (8.5-10.1); CREATININE SERUM 0.49 mg/dL (0.55-1.02); GFR 119.46; GLOBULINA 3.2 G/DL (2.4-3.5); TOTAL PROTEIN 5.3 gm/dL (6.4-8.2)
[2024-03-13 09:20] LABS: POTASSIUM 4.09 mEq/L (3.5-5.1)
[2024-03-13] MEDS ORDERED: FUROsemide 20 MG/2 ML VIAL IV SCH (15:30)
[2024-03-13] MEDS ORDERED: CLOTRIMAZOLE 10 MG TROCHE MM SCH (17:00)
[2024-03-14] VITALS (7 sets, daily range): BP systolic 113–138; BP diastolic 66–77; O2SAT 94–100
[2024-03-14] MEDS ORDERED: SOD FERRIC GLUC COMPLX/SUCROSE 62.5 MG/5 ML AMPUL IV ONE (10:37)
[2024-03-14] MEDS ORDERED: MORPHINE SULFATE 2 MG/ML CARTRIDGE IV PRN (13:45)
[2024-03-14] MEDS ORDERED: PANTOPRAZOLE SODIUM 80 MG in 0.9 % SODIUM CHLORIDE 100 ML IV SCH (13:45)
[2024-03-14] MEDS ORDERED: SUCRALFATE 1 G TABLET PO SCH (16:00)
[2024-03-15] VITALS (11 sets, daily range): BP systolic 108–154; BP diastolic 66–87; O2SAT 90–100
[2024-03-15] MEDS ORDERED: EMOLLIENTS 6 OZ BOTTLE TOP SCH (09:00)
[2024-03-15 10:49] LABS: HEMATOCRIT 34.3 % (36.0-45.00); HEMOGLOBIN 11.6 g/dL (12.0-15.00); MEAN CELL VOLUME 92.9 fL (80.00-100.00); MEAN CORPUSCULAR HEMOGLOBIN 31.5 pg (27.00-32.0); MEAN CORPUSCULAR HGB CONC 33.9 g/dl (32.0-36.0); PLATELET COUNT 199 K/uL (150-450); RED BLOOD COUNT 3.69 M/uL (4.00-6.00)
[2024-03-15 10:51] LABS: RED CELL DISTRIBUTION WIDTH 16.3 % (11.5-14.5)
[2024-03-15 11:18] LABS: CALCIUM 8.1 mg/dL (8.5-10.1); CREATININE SERUM 0.6 mg/dL (0.55-1.02); GFR 94.56; MAGNESIUM 2.1 mg/dL (1.8-2.4); PHOSPHOROUS 2.2 mg/dL (2.5-4.9); POTASSIUM 3.83 mEq/L (3.5-5.1)
[2024-03-16 01:38] VITALS: BP 117/69; O2SAT 100
[2024-03-16 05:27] VITALS: O2SAT 100
[2024-03-16 08:55] VITALS: O2SAT 99
[2024-03-16 10:13] VITALS: BP 125/80; O2SAT 98
[2024-03-16 15:15] VITALS: BP 123/78; O2SAT 100
[2024-03-16 16:22] VITALS: O2SAT 100
[2024-03-17] VITALS (8 sets, daily range): BP systolic 130–140; BP diastolic 74–80; O2SAT 89–100
[2024-03-17] MEDS ORDERED: AZTREONAM 1,000 MG VIAL IV SCH (15:40)
[2024-03-18] VITALS (9 sets, daily range): BP systolic 112–138; BP diastolic 61–79; O2SAT 99–100
[2024-03-19] VITALS (10 sets, daily range): BP systolic 121–136; BP diastolic 66–74; O2SAT 99–100
[2024-03-19 13:23] LABS: FECAL LEUKOCYTES NEGATIVE (NEGATIVE)
[2024-03-19] MEDS ORDERED: fentaNYL CITRATE 50 MCG/ML AMPUL IV PUSH ONE (19:30)
[2024-03-20] VITALS (8 sets, daily range): BP systolic 129–139; BP diastolic 66–79; O2SAT 90–100
[2024-03-20 05:38] LABS: HEMOGLOBIN 12.1 g/dL (12.0-15.00); MEAN CELL VOLUME 94.7 fL (80.00-100.00); MEAN CORPUSCULAR HEMOGLOBIN 32.8 pg (27.00-32.0); MEAN CORPUSCULAR HGB CONC 34.6 g/dl (32.0-36.0); PLATELET COUNT 223 K/uL (150-450); RED BLOOD COUNT 3.69 M/uL (4.00-6.00); RED CELL DISTRIBUTION WIDTH 17.1 % (11.5-14.5)
[2024-03-20 05:47] LABS: ERYTHROCYTE SEDIMENTATION RATE 69 mm/hr
[2024-03-20 06:46] LABS: ALBUMIN 2.4 gm/dL (3.4-5.0); BILIRUBIN TOTAL 1.28 mg/dL (0.3-1.2); CALCIUM 8.2 mg/dL (8.5-10.1); CREATININE SERUM 0.52 mg/dL (0.55-1.02); GFR 111.55; GLOBULINA 3.4 G/DL (2.4-3.5); POTASSIUM 3.45 mEq/L (3.5-5.1); TOTAL PROTEIN 5.8 gm/dL (6.4-8.2)
[2024-03-20 06:50] LABS: C-REACTIVE PROTEIN 9.61 MG/DL (0.00-0.29)
[2024-03-20] MEDS ORDERED: POTASSIUM CHLORIDE IN WATER 100 ML IV NR (09:22)
[2024-03-21] VITALS (9 sets, daily range): BP systolic 121–145; BP diastolic 70–79; O2SAT 90–100
[2024-03-22] VITALS (9 sets, daily range): BP systolic 128–178; BP diastolic 52–81; O2SAT 99–100
[2024-03-23] VITALS (9 sets, daily range): BP systolic 122–144; BP diastolic 68–88; O2SAT 89–100
[2024-03-23 08:08] LABS: HEMATOCRIT 31.8 % (36.0-45.00); MEAN CORPUSCULAR HEMOGLOBIN 32.5 pg (27.00-32.0); MEAN CORPUSCULAR HGB CONC 34.5 g/dl (32.0-36.0); PLATELET COUNT 251 K/uL (150-450); RED BLOOD COUNT 3.38 M/uL (4.00-6.00); RED CELL DISTRIBUTION WIDTH 17.3 % (11.5-14.5)
[2024-03-23 09:53] LABS: ALBUMIN 2.1 gm/dL (3.4-5.0); CREATININE SERUM 0.47 mg/dL (0.55-1.02); GFR 125.35; GLOBULINA 3.5 G/DL (2.4-3.5); TOTAL PROTEIN 5.6 gm/dL (6.4-8.2)
[2024-03-23 10:04] LABS: POTASSIUM 3.49 mEq/L (3.5-5.1)
[2024-03-23] MEDS ORDERED: POTASSIUM CHLORIDE IN WATER 100 ML IV NR (13:00)
[2024-03-23] MEDS ORDERED: SERTRALINE HCL 50 MG TABLET PO SCH (17:00)
[2024-03-23] MEDS ORDERED: CALCIUM CARBONATE/VITAMIN D3 1 TAB TABLET PO SCH (17:00)
[2024-03-23] MEDS ORDERED: AMINO ACIDS/PROTEIN HYDROLYS 30 ML BLIST.PACK PO SCH (17:00)
[2024-03-24] VITALS (9 sets, daily range): BP systolic 128–137; BP diastolic 56–72; O2SAT 100
[2024-03-24] MEDS ORDERED: LISINOPRIL 5 MG TABLET PO SCH (17:00)
[2024-03-25] VITALS (8 sets, daily range): BP systolic 115–126; BP diastolic 56–76; O2SAT 97–100
[2024-03-25] MEDS ORDERED: MORPHINE SULFATE 2 MG/ML CARTRIDGE IV PRN (08:30)
[2024-03-25 10:12] LABS: ABG PH 7.448 (7.35-7.45); ABG PO2 76.3 mmHg (80-100); ABG pCO2 43.3 mmHg (35-45); BASE EXCESS 4.7 mmol/l; BICARBONATE 29.3 mmol/l (23-25); SaO2 95.9 %; Tco2 30.6 mmol/l
[2024-03-25 10:20] LABS: allen test SATISFACTORY; o2 21 %; puncture site RADIAL RIGHT
[2024-03-26] VITALS (8 sets, daily range): BP systolic 115–149; BP diastolic 50–73; O2SAT 98–100
[2024-03-27] VITALS (9 sets, daily range): BP systolic 116–148; BP diastolic 55–78; O2SAT 99–100
[2024-03-27 16:39] LABS: CREATININE SERUM 0.59 mg/dL (0.55-1.02); GFR 96.42
[2024-03-27 16:40] LABS: CALCIUM 8.6 mg/dL (8.5-10.1); CHOL HDL RATIO 2.6 (0-5.0); POTASSIUM 3.45 mEq/L (3.5-5.1)
[2024-03-27] MEDS ORDERED: AMINO ACIDS 4.25 %/DEXTROSE 5% 1,000 ML PERIFERAL SCH (17:00)
[2024-03-28] VITALS (10 sets, daily range): BP systolic 100–117; BP diastolic 59–68; O2SAT 97–100
[2024-03-28] MEDS ORDERED: SERTRALINE HCL 100 MG TABLET PO SCH (17:00)
[2024-03-29] VITALS (7 sets, daily range): BP systolic 90–110; BP diastolic 55–61; O2SAT 100
[2024-03-29] MEDS ORDERED: SPIRONOLACTONE 25 MG TABLET PO SCH (09:00)
[2024-03-30] VITALS (10 sets, daily range): BP systolic 89–127; BP diastolic 50–63; O2SAT 99–100
[2024-03-30 06:27] LABS: HEMATOCRIT 26.9 % (36.0-45.00); HEMOGLOBIN 9.5 g/dL (12.0-15.00); MEAN CELL VOLUME 94.6 fL (80.00-100.00); MEAN CORPUSCULAR HEMOGLOBIN 33.4 pg (27.00-32.0); MEAN CORPUSCULAR HGB CONC 35.4 g/dl (32.0-36.0); PLATELET COUNT 243 K/uL (150-450); RED BLOOD COUNT 2.84 M/uL (4.00-6.00)
[2024-03-30 06:53] LABS: INR 1.15; PROTHROMBIN TIME 12.4 SECONDS (9.0-11.5)
[2024-03-30 06:54] LABS: PARTIAL THROMBOPLASTIN TIME 46.2 SECONDS (22.0-34.0)
[2024-03-30 07:09] LABS: ALBUMIN 2.2 gm/dL (3.4-5.0); BILIRUBIN TOTAL 0.7 mg/dL (0.3-1.2); BILIRUBIN,CONJUGATED 0.31 mg/dL (0.0-0.2); BILIRUBIN,UNCONJUGATED 0.39 mg/dL (0.0-0.6); CALCIUM 8.6 mg/dL (8.5-10.1); CHOL HDL RATIO 3.1 (0-5.0); CREATININE SERUM 0.59 mg/dL (0.55-1.02); GFR 96.42; GLOBULINA 3.5 G/DL (2.4-3.5); MAGNESIUM 2.1 mg/dL (1.8-2.4); TOTAL PROTEIN 5.7 gm/dL (6.4-8.2)
[2024-03-30 07:49] LABS: POTASSIUM 2.96 mEq/L (3.5-5.1)
[2024-03-30 07:58] LABS: UREA CLEARANCE 13.6 ML/MIN
[2024-03-30] MEDS ORDERED: SOD FERRIC GLUC COMPLX/SUCROSE 62.5 MG in 0.9 % SODIUM CHLORIDE 50 ML IV SCH (19:38)
[2024-03-30] MEDS ORDERED: POTASSIUM CHLORIDE IN WATER 100 ML IV NR (19:45)
[2024-03-31] VITALS (9 sets, daily range): BP systolic 100–114; BP diastolic 42–50; O2SAT 95–100
[2024-04-01] VITALS (9 sets, daily range): BP systolic 98–106; BP diastolic 56–62; O2SAT 96–100
[2024-04-01] MEDS ORDERED: PANTOPRAZOLE SODIUM 40 MG/VIAL VIAL ONE (16:58)
[2024-04-02] VITALS (8 sets, daily range): BP systolic 99–108; BP diastolic 47–61; O2SAT 90–100
[2024-04-03] VITALS (8 sets, daily range): BP systolic 92–100; BP diastolic 48–55; O2SAT 98–100
[2024-04-03] MEDS ORDERED: MIDAZOLAM HCL 2 MG/2 ML VIAL IV STA (13:05)
[2024-04-03] MEDS ORDERED: PANTOPRAZOLE SODIUM 40 MG/VIAL VIAL ONE (22:32)
[2024-04-03] MEDS ORDERED: MORPHINE SULFATE 2 MG/ML CARTRIDGE IV PRN (23:15)
[2024-04-04] VITALS (7 sets, daily range): BP systolic 104–109; BP diastolic 53–70; O2SAT 95–100
[2024-04-05] VITALS (7 sets, daily range): BP systolic 101–112; BP diastolic 50–67; O2SAT 90–100
[2024-04-05 09:10] LABS: HEMATOCRIT 26.1 % (36.0-45.00); HEMOGLOBIN 9.2 g/dL (12.0-15.00); MEAN CELL VOLUME 97.2 fL (80.00-100.00); MEAN CORPUSCULAR HEMOGLOBIN 34.3 pg (27.00-32.0); MEAN CORPUSCULAR HGB CONC 35.2 g/dl (32.0-36.0); PLATELET COUNT 192 K/uL (150-450); RED BLOOD COUNT 2.69 M/uL (4.00-6.00); RED CELL DISTRIBUTION WIDTH 21.2 % (11.5-14.5)
[2024-04-05 09:12] LABS: ALBUMIN 2.2 gm/dL (3.4-5.0); BILIRUBIN TOTAL 0.72 mg/dL (0.3-1.2); CALCIUM 8.2 mg/dL (8.5-10.1); CREATININE SERUM 0.55 mg/dL (0.55-1.02); GFR 104.55; GLOBULINA 3.3 G/DL (2.4-3.5); MAGNESIUM 2.2 mg/dL (1.8-2.4); TOTAL PROTEIN 5.5 gm/dL (6.4-8.2)
[2024-04-05 10:17] LABS: POTASSIUM 2.83 mEq/L (3.5-5.1)
[2024-04-05] MEDS ORDERED: POTASSIUM CHLORIDE IN WATER 100 ML IV STA (13:57)
[2024-04-05] MEDS ORDERED: SOD FERRIC GLUC COMPLX/SUCROSE 62.5 MG/5 ML AMPUL IV ONE (16:02)
[2024-04-05] MEDS ORDERED: SOD FERRIC GLUC COMPLX/SUCROSE 62.5 MG in 0.9 % SODIUM CHLORIDE 50 ML IV SCH (17:00)
[2024-04-06] VITALS (9 sets, daily range): BP systolic 100–124; BP diastolic 53–70; O2SAT 90–98
[2024-04-06 07:51] LABS: HEMATOCRIT 28.7 % (36.0-45.00); HEMOGLOBIN 9.9 g/dL (12.0-15.00); MEAN CELL VOLUME 97.1 fL (80.00-100.00); MEAN CORPUSCULAR HEMOGLOBIN 33.3 pg (27.00-32.0); MEAN CORPUSCULAR HGB CONC 34.3 g/dl (32.0-36.0); PLATELET COUNT 287 K/uL (150-450); RED BLOOD COUNT 2.96 M/uL (4.00-6.00); RED CELL DISTRIBUTION WIDTH 21.5 % (11.5-14.5)
[2024-04-06 08:39] LABS: INR 1.17; PROTHROMBIN TIME 12.6 SECONDS (9.0-11.5)
[2024-04-06 08:42] LABS: PARTIAL THROMBOPLASTIN TIME 66.2 SECONDS (22.0-34.0)
[2024-04-06 09:55] LABS: ALBUMIN 2.4 gm/dL (3.4-5.0); BILIRUBIN TOTAL 0.92 mg/dL (0.3-1.2); BILIRUBIN,CONJUGATED 0.36 mg/dL (0.0-0.2); BILIRUBIN,UNCONJUGATED 0.56 mg/dL (0.0-0.6); CALCIUM 8.3 mg/dL (8.5-10.1); CHOL HDL RATIO 2.8 (0-5.0); CREATININE SERUM 0.56 mg/dL (0.55-1.02); GFR 102.4; GLOBULINA 4.3 G/DL (2.4-3.5); MAGNESIUM 2.3 mg/dL (1.8-2.4); TOTAL PROTEIN 6.7 gm/dL (6.4-8.2)
[2024-04-06 11:05] LABS: POTASSIUM 2.83 mEq/L (3.5-5.1)
[2024-04-06 11:17] LABS: ABG PH 7.309 (7.35-7.45); ABG PO2 67.3 mmHg (80-100); ABG pCO2 50.1 mmHg (35-45); BASE EXCESS -2.2 mmol/l; BICARBONATE 24.6 mmol/l (23-25); SaO2 90.8 %; Tco2 26.2 mmol/l
[2024-04-06] MEDS ORDERED: FLUCONAZOLE IN NACL,ISO-OSM 200 MG/100 ML PIGGYBAG IV STA (12:20)
[2024-04-06] MEDS ORDERED: levoFLOXacin IN DEXTROSE 5 % 500MG/100ML PIGGYBAG IV STA (12:22)
[2024-04-06] MEDS ORDERED: levoFLOXacin IN DEXTROSE 5 % 500MG/100ML PIGGYBAG IV SCH (12:30)
[2024-04-06 12:38] LABS: UREA CLEARANCE 16.5 ML/MIN
[2024-04-06 12:42] LABS: allen test SATISFACTORY; o2 100 %; puncture site RADIAL RIGHT
[2024-04-06] MEDS ORDERED: FUROsemide 20 MG/2 ML VIAL IV STA (13:24)
[2024-04-06 13:59] LABS: CALCIUM 8.6 mg/dL (8.5-10.1); CREATININE SERUM 0.53 mg/dL (0.55-1.02); GFR 109.12
[2024-04-06 14:12] LABS: POTASSIUM 2.47 mEq/L (3.5-5.1)
[2024-04-06] MEDS ORDERED: POTASSIUM CHLORIDE IN WATER 100 ML IV STA (14:35)
[2024-04-06] MEDS ORDERED: AMIODARONE HCL 200 MG TABLET PO SCH (17:00)
[2024-04-06] MEDS ORDERED: CLINDAMYCIN PHOSPHATE 600 MG in DEXTROSE 5 % IN WATER 50 ML IV SCH (17:00)
[2024-04-06] MEDS ORDERED: LINEZOLID IN DEXTROSE 5% 600 MG/300 ML PIGGYBAG IV SCH (17:00)
[2024-04-06] MEDS ORDERED: CEFEPIME HCL 1,000 MG VIAL IV SCH (17:00)
[2024-04-06 18:27] LABS: URINE APPEARANCE Cloudy; URINE BILIRRUBIN Negative (NEGATIVE); URINE BLOOD Large; URINE COLOR Dark Yellow; URINE KETONE Negative (NEGATIVE); URINE LEUKOCYTE Small; URINE NITRATE Negative
[2024-04-06 18:30] LABS: URINE BACTERIA 210.4 uL (0.0-1933); URINE CAST 10.68 uL (0.0-1.40); URINE RBC 1302.7 uL (0.0-20.8); URINE WBC 30.9 uL (0.0-23.2)
[2024-04-06 18:57] LABS: URINE CRYSTALS FEW /HPF; URINE GLUCOSE 100 MG/DL (NEGATIVE); URINE PROTEIN 100 (NEGATIVE)
[2024-04-06] MEDS ORDERED: POTASSIUM CHLORIDE IV ONE (22:15)
[2024-04-06] MEDS ORDERED: [UNRECOGNIZED DRUG - OTHER] IV ONE (22:15)
[2024-04-07] VITALS (10 sets, daily range): BP systolic 70–102; BP diastolic 40–56; O2SAT 90–98
[2024-04-07 08:36] LABS: HEMATOCRIT 26.4 % (36.0-45.00); HEMOGLOBIN 9.1 g/dL (12.0-15.00); MEAN CELL VOLUME 97.8 fL (80.00-100.00); MEAN CORPUSCULAR HEMOGLOBIN 33.7 pg (27.00-32.0); MEAN CORPUSCULAR HGB CONC 34.5 g/dl (32.0-36.0); PLATELET COUNT 249 K/uL (150-450); RED CELL DISTRIBUTION WIDTH 21.9 % (11.5-14.5)
[2024-04-07] MEDS ORDERED: FUROsemide 20 MG/2 ML VIAL IV SCH (09:00)
[2024-04-07] MEDS ORDERED: FLUCONAZOLE IN NACL,ISO-OSM 100 ML IV SCH (09:00)
[2024-04-07 09:54] LABS: ALBUMIN 2.1 gm/dL (3.4-5.0); BILIRUBIN TOTAL 0.74 mg/dL (0.3-1.2); CALCIUM 9.1 mg/dL (8.5-10.1); CREATININE SERUM 0.75 mg/dL (0.55-1.02); GFR 73.1; GLOBULINA 4.4 G/DL (2.4-3.5); MAGNESIUM 2.3 mg/dL (1.8-2.4); TOTAL PROTEIN 6.5 gm/dL (6.4-8.2)
[2024-04-07] MEDS ORDERED: MORPHINE SULFATE 2 MG/ML CARTRIDGE IV ONE (10:15)
[2024-04-07 10:50] LABS: PHOSPHOROUS 0.2 mg/dL (2.5-4.9)
[2024-04-07 10:52] LABS: POTASSIUM 2.73 mEq/L (3.5-5.1)
[2024-04-07] MEDS ORDERED: POTASSIUM PHOS,M-BASIC-D-BASIC 18 MM in 0.9 % SODIUM CHLORIDE 250 ML IV NR (14:30)
[2024-04-07] MEDS ORDERED: MORPHINE SULFATE 50 MG in 0.9 % SODIUM CHLORIDE 50 ML IV SCH (17:45)
[2024-04-08 02:00] VITALS: BP 88/54; O2SAT 97
[2024-04-08 05:14] VITALS: O2SAT 98
== END 2024-04-08 10:40 | disposition expired | DRG 291 ==
LOC: ER 13:41 → MEDI 20:43 → MEDJ 02-24 13:29
PROVIDERS: General Practice; Internal Medicine; Internal Medicine Geriatric Medicine; Internal Medicine Infectious Disease; Specialist; ADMIT Internal Medicine; ATTEND Internal Medicine
PROC: B24BYZZ Ultrasonography of Heart with Aorta using Other Contrast (ICD-10-PCS; 2024-02-22)
PROC: 4A12X4Z Monitoring of Cardiac Electrical Activity, External Approach (ICD-10-PCS; 2024-02-22)
PROC: BW24ZZZ Computerized Tomography (CT Scan) of Chest and Abdomen (ICD-10-PCS; 2024-02-24)
PROC: B54DZZZ Ultrasonography of Bilateral Lower Extremity Veins (ICD-10-PCS; 2024-02-26)
PROC: 02HV33Z Insertion of Infusion Device into Superior Vena Cava, Percutaneous Approach (ICD-10-PCS; 2024-02-26)
PROC: BW21YZZ Computerized Tomography (CT Scan) of Abdomen and Pelvis using Other Contrast (ICD-10-PCS; 2024-02-27)
PROC: B54MZZZ Ultrasonography of Right Upper Extremity Veins (ICD-10-PCS; 2024-03-03)
PROC: BT40ZZZ Ultrasonography of Bladder (ICD-10-PCS; 2024-03-11)
PROC: BW2GYZZ Computerized Tomography (CT Scan) of Pelvic Region using Other Contrast (ICD-10-PCS; 2024-03-12)
PROC: 30243N1 Transfusion of Nonautologous Red Blood Cells into Central Vein, Percutaneous Approach (ICD-10-PCS; 2024-03-14)
PROC: CT1 Nuclear Medicine, Urinary System, Planar Nuclear Medicine Imaging (ICD-10-PCS; 2024-03-17)
PROC: 0H9KXZZ Drainage of Right Lower Leg Skin, External Approach (ICD-10-PCS; principal; 2024-03-19)
PROC: BW2FZZZ Computerized Tomography (CT Scan) of Neck (ICD-10-PCS; 2024-03-27)
PROC: BW28ZZZ Computerized Tomography (CT Scan) of Head (ICD-10-PCS; 2024-03-30)
PROC: 0DH63UZ Insertion of Feeding Device into Stomach, Percutaneous Approach (ICD-10-PCS; 2024-04-03)
DX: I50.9 Heart failure, unspecified (principal); A41.9 Sepsis, unspecified organism; J18.9 Pneumonia, unspecified organism; I82.621 Acute embolism and thrombosis of deep veins of right upper extremity; J81.1 Chronic pulmonary edema; J90 Pleural effusion, not elsewhere classified; N17.9 Acute kidney failure, unspecified; K86.1 Other chronic pancreatitis; L02.415 Cutaneous abscess of right lower limb; K81.0 Acute cholecystitis; J98.11 Atelectasis; N39.0 Urinary tract infection, site not specified; M60.051 Infective myositis, right thigh; B49 Unspecified mycosis; R06.02 Shortness of breath; E87.6 Hypokalemia; E11.9 Type 2 diabetes mellitus without complications; Z79.4 Long term (current) use of insulin; I99.8 Other disorder of circulatory system; I50.20 Unspecified systolic (congestive) heart failure; I11.0 Hypertensive heart disease with heart failure; R63.0 Anorexia; R69 Illness, unspecified; R00.0 Tachycardia, unspecified; D69.6 Thrombocytopenia, unspecified; I48.0 Paroxysmal atrial fibrillation; K29.70 Gastritis, unspecified, without bleeding; R10.84 Generalized abdominal pain; K21.9 Gastro-esophageal reflux disease without esophagitis; D64.9 Anemia, unspecified; S70.11XA Contusion of right thigh, initial encounter; Z66 Do not resuscitate; B95.2 Enterococcus as the cause of diseases classified elsewhere